=== PATIENT | female | born 1980 | race Two or more races ===

== ENCOUNTER 2019-04-22 06:22 | Inpatient (IN) | payer MEDICAID ==
[2019-04-22] MEDS ORDERED: Lactated Ringers 1,000 ML ONE (06:29)
[2019-04-22] MEDS ORDERED: Oxytocin/Lactated Ringers 10 UNIT/1,000 ML BAG IV ONE (06:30)
[2019-04-22] MEDS ORDERED: Docusate Sodium 100 MG Cap PO PRN (07:06)
[2019-04-22] MEDS ORDERED: Witch Hazel Medicated Pads 40/Jar TOP PRN (07:06)
[2019-04-22] MEDS ORDERED: Lanolin 100% Cream 7 GM Tube TOP PRN (07:06)
--- NOTE | 2019-04-22 07:11 | PCM.SN ---
- Free Text/Narrative Note: Stage 1 - patient presented in active labor. Progressed to complete. Stage II - of viable male, weight 8/9, APGARS 8/9 at 0655. Head delivered in controlled manner over intact perineum. Body and shoulders atraumatically. Positive cry. STage II - of intact placenta. 3vc. No laceration.
[2019-04-22] MEDS ORDERED: Nalbuphine 10 MG/1 ML Vial IVPUSH PRN (07:33)
[2019-04-22] MEDS ORDERED: Sodium Chloride 0.9% 10 ML Syringe FLUSH PRN (07:33)
[2019-04-22] MEDS ORDERED: Lactated Ringers 1,000 ML IV SCH (07:45)
[2019-04-22] MEDS ORDERED: Oxytocin/Lactated Ringers 10 UNIT/1,000 ML BAG IV SCH (07:45)
[2019-04-22] MEDS: Ibuprofen 600 MG Tab PO PRN (19:28)
--- NOTE | 2019-04-23 06:40 | PCM.LDHP ---
L&D History of Present Illness - General Date of Service: 04/23/19 Admit Problem/Dx: Patient Status Order with Admit Dx/Problem 04/22/19 07:33 Patient Status [ADT] Routine Admission Diagnosis/Problem Admission Diagnosis/Problem Term Source of Information: Patient History Limitations: Reports: No Limitations - History of Present Illness Introduction:: 39 year old here in active labor. 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 Social & Family History - Family History Family Medical History: Noncontributory - Tobacco Use Smoking Status *Q: Former Smoker Years of Tobacco use: 5 Used Tobacco, but Quit: Yes Month/Year Tobacco Last Used: 09/2018 - Recreational Drug Use Recreational Drug Use: No H&P Review of Systems - Review of Systems: Review Of Systems: See Below General: Reports: No Symptoms HEENT: Reports: No Symptoms Pulmonary: Reports: No Symptoms Cardiovascular: Reports: No Symptoms Gastrointestinal: Reports: No Symptoms Genitourinary: Reports: No Symptoms Musculoskeletal: Reports: No Symptoms Skin: Reports: No Symptoms Psychiatric: Reports: No Symptoms Neurological: Reports: No Symptoms Hematologic/Lymphatic: Reports: No Symptoms Immunologic: Reports: No Symptoms L&D Exam - Exam Exam: See Below - Vital Signs Vital Signs: Last Vital Signs Temp 36.8 C 04/23/19 03:04 Pulse 73 04/23/19 03:04 Resp 16 04/23/19 03:04 BP 107/50 L 04/23/19 03:04 Pulse Ox 99 04/23/19 03:04 Weight: 89.811 kg - OB Specific Contraction Intensity: Moderate to Strong Movement: Active Heart Tones: Present Heart Rate (FHR) Variability: Moderate (6-25 bmp) Presentation: Vertex - Exam General: Alert, Oriented HEENT: PERRLA, Conjunctiva Clear, EACs Clear, EOMI, Hearing Intact, Mucosa Moist & Sandy, Nares Patent, Normal Nasal Septum, Posterior Pharynx Clear, TMs Clear Neck: Supple, Trachea Midline Lungs: Clear to Auscultation, Normal Respiratory Effort Cardiovascular: Regular Rate, Regular Rhythm GI/Abdominal Exam: Normal Bowel Sounds, Soft, Non-Tender, No Organomegaly, No Distention, No Abnormal Bruit, No Mass, Pelvis Stable Rectal Exam: Normal Exam, Normal Rectal Tone Back Exam: Normal Inspection, Full Range of Motion Extremities: Normal Inspection, Normal Range of Motion, Non-Tender, No Pedal Edema, Normal Capillary Refill Skin: Warm, Dry, Intact Neurological: Cranial Nerves Intact, Reflexes Equal Bilateral Psychiatric: Alert, Normal Affect, Normal Mood - Patient Data Lab Results Last 24 hrs: Laboratory Results - last 24 hr 04/22/19 04/22/19 Range/Units 08:25 08:25 WBC 11.32 H (3.98-10.04) K/mm3 RBC 5.68 H (3.98-5.22) M/mm3 Hgb 16.8 H (11.2-15.7) gm/dl Hct 49.5 H (34.1-44.9) % MCV 87.1 (79.4-94.8) fl MCH 29.6 (25.6-32.2) pg MCHC 33.9 (32.2-35.5) g/dl RDW Std Deviation 44.1 (36.4-46.3) fL Plt Count 183 (182-369) K/mm3 MPV 9.8 (9.4-12.3) fl RPR Non-reactive (NONREACTIVE) Result Diagrams: 04/22/19 08:25 Problem List Initiated/Reviewed/Updated: Yes Orders Last 24hrs: Active Orders 24 hr Category Date Time Status Patient Status [ADT] Routine ADT 04/22/19 07:33 Active Activity as Tolerated [RC] PER UNIT ROUTINE Care 04/22/19 07:06 Active Activity as Tolerated [RC] PFP Care 04/22/19 07:33 Active Communication Order [RC] ASDIRECTED Care 04/22/19 07:33 Active Notify Provider [RC] PFP Care 04/22/19 07:33 Active Notify Provider [RC] PRN Care 04/22/19 07:33 Active Peripheral IV Care [RC] . DIRECTED Care 04/22/19 07:34 Active Vital Signs [RC] 03,09,15,21 Care 04/22/19 07:06 Active Regular Diet [DIET] Diet 04/22/19 Breakfast Active Docusate Sodium [Colace] Med 04/22/19 07:06 Active 100 mg PO BID PRN Ibuprofen [Motrin] Med 04/22/19 07:07 Active 600 mg PO Q6H PRN Lactated Ringers [Ringers, Lactated] 1,000 ml Med 04/22/19 07:45 Active IV ASDIRECTED Lanolin [Lansinoh HPA] Med 04/22/19 07:06 Active See Dose Instructions TOP ASDIRECTED PRN Nalbuphine [Nubain] Med 04/22/19 07:33 Active 10 mg IVPUSH Q2H PRN Oxytocin/Lactated Ringers [Pitocin in LR 10 Units/1,000 Med 04/22/19 07:45 Active ML] 10 unit in 1,000 ml IV .CONTINUOUS Sodium Chloride 0.9% [Saline Flush] Med 04/22/19 07:33 Active 10 ml FLUSH ASDIRECTED PRN Witch Shannan [Tucks] Med 04/22/19 07:06 Active 1 pad TOP ASDIRECTED PRN Assess Lochia [WOMSER] Per Unit Routine Ot 04/22/19 07:06 Ordered Assess Uterine Involution [WOMSER] Per Unit Routine Ot 04/22/19 07:06 Ordered Breast Pump [WOMSER] Per Unit Routine Ot 04/22/19 07:06 Ordered Electronic Heart Tones Ext w TOCO [WOMSER] Ot 04/22/19 07:33 Ordered Routine Electronic Heart Tones Internal [WOMSER] Per Unit Oth 04/22/19 07:33 Ordered Routine Heat Therapy [OM.PC] PRN Oth 04/22/19 07:15 Ordered Heat Therapy [OM.PC] PRN Ot 04/23/19 07:15 Ordered Medication Administration Instruction [OM.PC] Routine Ot 04/22/19 07:06 Ordered Perineal Care [OM.PC] Per Unit Routine Ot 04/22/19 07:06 Ordered Peripheral IV Insertion Adult [OM.PC] Routine Ot 04/22/19 07:33 Ordered Sitz Bath [OM.PC] Per Unit Routine Ot 04/22/19 07:06 Ordered Resuscitation Status Routine Resus Stat 04/22/19 07:06 Ordered Medication Orders Docusate Sodium (Colace) 100 mg PO BID PRN PRN Reason: Constipation Emollient Ointment (Lansinoh Hpa) 0 gm TOP ASDIRECTED PRN PRN Reason: Sore Nipples Lactated Ringer's (Ringers, Lactated) 1,000 mls @ 100 mls/hr IV ASDIRECTED BUTCH Oxytocin/Lactated Ringer's (Pitocin In Lr 10 Units/1,000 Ml) 10 unit in 1,000 mls @ 500 mls/hr IV .CONTINUOUS BUTCH Ibuprofen (Motrin) 600 mg PO Q6H PRN PRN Reason: Pain Last Admin: 04/22/19 19:28 Dose: 600 mg Nalbuphine HCl (Nubain) 10 mg IVPUSH Q2H PRN PRN Reason: Pain Sodium Chloride (Saline Flush) 10 ml FLUSH ASDIRECTED PRN PRN Reason: Keep Vein Open Angelina Campbell (Tucks) 1 pad TOP ASDIRECTED PRN PRN Reason: Pain Assessment/Plan Comment:: Term labor. Admitted with rapid .
--- NOTE | 2019-04-23 06:41 | PCM.PNPP ---
- General Info Date of Service: 04/23/19 Functional Status: Reports: Pain Controlled - Review of Systems General: Reports: No Symptoms HEENT: Reports: No Symptoms Pulmonary: Reports: No Symptoms Cardiovascular: Reports: No Symptoms Gastrointestinal: Reports: No Symptoms Genitourinary: Reports: No Symptoms Musculoskeletal: Reports: No Symptoms Skin: Reports: No Symptoms Neurological: Reports: No Symptoms Psychiatric: Reports: No Symptoms - General Info Date of Service: 04/23/19 - Patient Data Vital Signs - Most Recent: Last Vital Signs Temp 36.8 C 04/23/19 03:04 Pulse 73 04/23/19 03:04 Resp 16 04/23/19 03:04 BP 107/50 L 04/23/19 03:04 Pulse Ox 99 04/23/19 03:04 Weight - Most Recent: 89.811 kg I&O - Last 24 Hours: Intake & Output 04/22/19 04/22/19 04/23/19 14:59 22:59 06:59 Intake Total 1240 100 Balance 1240 100 Lab Results - Last 24 Hours: Laboratory Results - last 24 hr 04/22/19 04/22/19 Range/Units 08:25 08:25 WBC 11.32 H (3.98-10.04) K/mm3 RBC 5.68 H (3.98-5.22) M/mm3 Hgb 16.8 H (11.2-15.7) gm/dl Hct 49.5 H (34.1-44.9) % MCV 87.1 (79.4-94.8) fl MCH 29.6 (25.6-32.2) pg MCHC 33.9 (32.2-35.5) g/dl RDW Std Deviation 44.1 (36.4-46.3) fL Plt Count 183 (182-369) K/mm3 MPV 9.8 (9.4-12.3) fl RPR Non-reactive (NONREACTIVE) Med Orders - Current: Current Medications Docusate Sodium (Colace) 100 mg PO BID PRN PRN Reason: Constipation Emollient Ointment (Lansinoh Hpa) 0 gm TOP ASDIRECTED PRN PRN Reason: Sore Nipples Lactated Ringer's (Ringers, Lactated) 1,000 mls @ 100 mls/hr IV ASDIRECTED BUTCH Oxytocin/Lactated Ringer's (Pitocin In Lr 10 Units/1,000 Ml) 10 unit in 1,000 mls @ 500 mls/hr IV .CONTINUOUS BUTCH Ibuprofen (Motrin) 600 mg PO Q6H PRN PRN Reason: Pain Last Admin: 04/22/19 19:28 Dose: 600 mg Nalbuphine HCl (Nubain) 10 mg IVPUSH Q2H PRN PRN Reason: Pain Sodium Chloride (Saline Flush) 10 ml FLUSH ASDIRECTED PRN PRN Reason: Keep Vein Open Witch Shannan (Tucks) 1 pad TOP ASDIRECTED PRN PRN Reason: Pain Discontinued Medications Lactated Ringer's (Ringers, Lactated) Confirm Administered Dose 1,000 mls @ as directed .ROUTE .STK-MED ONE Stop: 04/22/19 06:30 Last Admin: 04/23/19 02:18 Dose: Not Given Oxytocin/Lactated Ringer's (Pitocin In Lr 10 Units/1,000 Ml) Confirm Administered Dose 10 unit in 1,000 mls @ as directed IV .STK-MED ONE Stop: 04/22/19 06:31 Last Admin: 04/23/19 02:18 Dose: Not Given - Interaction Disposition, : [place] to Nursery Support Person: Significant Other - Recovery Exam Fundal Tone: Firm Fundal Level: 1 Fingerbreadths Below Umbilicus Fundal Placement: Midline Lochia Amount: Small Lochia Color: Rubra/Red Perineum Description: Intact, Minimal Bruising/Swelling Episiotomy/Laceration: None Bladder Status: Voiding Urinary Elimination: Voided - Exam General: Alert, Oriented HEENT: Pupils Equal Neck: Supple Lungs: Clear to Auscultation, Normal Respiratory Effort Cardiovascular: Regular Rate, Regular Rhythm GI/Abdominal Exam: Normal Bowel Sounds, Soft, Non-Tender, No Organomegaly, No Distention, No Abnormal Bruit, No Mass, Pelvis Stable Extremities: Normal Inspection, Normal Range of Motion, Non-Tender, No Pedal Edema, Normal Capillary Refill Skin: Warm, Dry, Intact Neurological: No New Focal Deficit Psy/Mental Status: Alert, Normal Affect, Normal Mood - Problem List Review Problem List Initiated/Reviewed/Updated: Yes - My Orders Last 24 Hours: My Active Orders 04/22/19 07:06 Activity as Tolerated [RC] PER UNIT ROUTINE Vital Signs [RC] 03,09,15,21 Docusate Sodium [Colace] 100 mg PO BID PRN Lanolin [Lansinoh HPA] See Dose Instructions TOP ASDIRECTED PRN Witch Shannan [Tucks] 1 pad TOP ASDIRECTED PRN Assess Lochia [WOMSER] Per Unit Routine Assess Uterine Involution [WOMSER] Per Unit Routine Breast Pump [WOMSER] Per Unit Routine Medication Administration Instruction [OM.PC] Routine Perineal Care [OM.PC] Per Unit Routine Sitz Bath [OM.PC] Per Unit Routine Resuscitation Status Routine 04/22/19 07:07 Ibuprofen [Motrin] 600 mg PO Q6H PRN 04/22/19 07:15 Heat Therapy [OM.PC] PRN 04/22/19 07:33 Patient Status [ADT] Routine Activity as Tolerated [RC] PFP Communication Order [RC] ASDIRECTED Notify Provider [RC] PFP Notify Provider [RC] PRN Nalbuphine [Nubain] 10 mg IVPUSH Q2H PRN Sodium Chloride 0.9% [Saline Flush] 10 ml FLUSH ASDIRECTED PRN Electronic Heart Tones Ext w TOCO [WOMSER] Routine Electronic Heart Tones Internal [WOMSER] Per Unit Routine Peripheral IV Insertion Adult [OM.PC] Routine 04/22/19 07:34 Peripheral IV Care [RC] . DIRECTED 04/22/19 07:45 Lactated Ringers [Ringers, Lactated] 1,000 ml IV ASDIRECTED Oxytocin/Lactated Ringers [Pitocin in LR 10 Units/1,000 ML] 10 unit in 1,000 ml IV .CONTINUOUS 04/22/19 Breakfast Regular Diet [DIET] 04/23/19 07:15 Heat Therapy [OM.PC] PRN - Plan Plan:: Term labor. Admitted with rapid . Routine care. No antibiotics able to be given because delivery immediately after arrival. Will stay until PPD2
[2019-04-23] MEDS: Ibuprofen 600 MG Tab PO PRN (15:59)
--- NOTE | 2019-04-24 06:40 | PCM.DCSUM1 ---
Discharge Summary - Hospital Course Diagnosis: Stroke: No - Discharge Data Discharge Date: 04/24/19 Discharge Disposition: Home, Self-Care 01 Condition: Good - Referral to Home Health Primary Care Physician: Maira Suárez MD - Patient Instructions Diet: Usual Diet as Tolerated Driving: May Drive Today Showering/Bathing: May Shower Wound/Incision Care: Keep Operative Site/Wound Site Clean and Dry Notify Provider of: Fever, Increased Pain, Swelling and Redness, Drainage - Discharge Plan *PRESCRIPTION DRUG MONITORING PROGRAM REVIEWED*: No *COPY OF PRESCRIPTION DRUG MONITORING REPORT IN PATIENT JACQUES: No Home Medications: Home Meds PNV95/Ferrous Fumarate/FA [ Tablet] 1 each PO 04/22/19 [History] Referrals: Maira Suárez MD [Primary Care Provider] - (4 weeks) - Discharge Summary/Plan Comment DC Time >30 min.: No - General Info Date of Service: 04/24/19 Functional Status: Reports: Pain Controlled - Review of Systems General: Reports: No Symptoms HEENT: Reports: No Symptoms Pulmonary: Reports: No Symptoms Cardiovascular: Reports: No Symptoms Gastrointestinal: Reports: No Symptoms Genitourinary: Reports: No Symptoms Musculoskeletal: Reports: No Symptoms Skin: Reports: No Symptoms Neurological: Reports: No Symptoms Psychiatric: Reports: No Symptoms - Patient Data Vitals - Most Recent: Last Vital Signs Temp 36.6 C 04/24/19 03:28 Pulse 79 04/24/19 03:28 Resp 15 04/24/19 03:28 BP 111/54 L 04/24/19 03:28 Pulse Ox 98 04/24/19 03:28 Weight - Most Recent: 89.811 kg Med Orders - Current: Current Medications Docusate Sodium (Colace) 100 mg PO BID PRN PRN Reason: Constipation Emollient Ointment (Lansinoh Hpa) 0 gm TOP ASDIRECTED PRN PRN Reason: Sore Nipples Lactated Ringer's (Ringers, Lactated) 1,000 mls @ 100 mls/hr IV ASDIRECTED BUTCH Oxytocin/Lactated Ringer's (Pitocin In Lr 10 Units/1,000 Ml) 10 unit in 1,000 mls @ 500 mls/hr IV .CONTINUOUS BUTCH Ibuprofen (Motrin) 600 mg PO Q6H PRN PRN Reason: Pain Last Admin: 04/23/19 15:59 Dose: 600 mg Nalbuphine HCl (Nubain) 10 mg IVPUSH Q2H PRN PRN Reason: Pain Sodium Chloride (Saline Flush) 10 ml FLUSH ASDIRECTED PRN PRN Reason: Keep Vein Open Witdon Campbell (Tucks) 1 pad TOP ASDIRECTED PRN PRN Reason: Pain Discontinued Medications Lactated Ringer's (Ringers, Lactated) Confirm Administered Dose 1,000 mls @ as directed .ROUTE .STK-MED ONE Stop: 04/22/19 06:30 Last Admin: 04/23/19 02:18 Dose: Not Given Oxytocin/Lactated Ringer's (Pitocin In Lr 10 Units/1,000 Ml) Confirm Administered Dose 10 unit in 1,000 mls @ as directed IV .STK-MED ONE Stop: 04/22/19 06:31 Last Admin: 04/23/19 02:18 Dose: Not Given - Exam General: Reports: Alert, Oriented HEENT: Reports: Pupils Equal, Pupils Reactive, EOMI, Mucous Membr. Moist/[place] Neck: Reports: Supple Lungs: Reports: Clear to Auscultation, Normal Respiratory Effort Cardiovascular: Reports: Regular Rate, Regular Rhythm GI/Abdominal Exam: Normal Bowel Sounds, Soft, Non-Tender, No Organomegaly, No Distention, No Abnormal Bruit, No Mass, Pelvis Stable (Female) Exam: Normal External Exam, Normal Speculum Exam, Normal Bimanual Exam Back Exam: Reports: Normal Inspection, Full Range of Motion Extremities: Normal Inspection, Normal Range of Motion, Non-Tender, No Pedal Edema, Normal Capillary Refill Skin: Reports: Warm, Dry, Intact Wound/Incisions: Reports: Healing Well Neurological: Reports: No New Focal Deficit Psy/Mental Status: Reports: Alert, Normal Affect, Normal Mood
[2019-04-24] MEDS: Ibuprofen 600 MG Tab PO PRN (08:17)
== END 2019-04-24 09:35 | disposition home or self-care (01) | DRG 807 ==
LOC: JD.OBCHECK 06:22 → JD.OB 06:22 → JD.OBCHECK 06:23 → OBSVTOIN 06:55 → JD.OB 06:56
PROVIDERS: ADMIT Obstetrics & Gynecology; ATTEND Obstetrics & Gynecology
PROC: 10E0XZZ Delivery of Products of Conception, External Approach (ICD-10-PCS; principal; 2019-04-22)
DX: O80 Encounter for full-term uncomplicated delivery (principal); Z37.0 Single live birth; Z87.891 Personal history of nicotine dependence; Z3A.39 39 weeks gestation of pregnancy; Z67.40 Type O blood, Rh positive
CPT/HCPCS: 36415; 59025; 59409; 85027; 86592; A9270-GY